=== PATIENT | female | born 1945 | race Caucasian/White ===

== ENCOUNTER → 2016-12-21 | Outpatient (REF) | payer OTHER ==
[2016-12-21 19:38] LABS: ALBUMIN 3.4 GM/DL (3.2-5.2); ALBUMIN/GLOBULIN RATIO 0.89 (1.00-1.93); ALKALINE PHOSPHATASE 150 U/L (45-117); ALT/SGPT 25 U/L (12-78); ANION GAP 3 MEQ/L (8-16); AST/SGOT 15 U/L (15-37); BILIRUBIN,TOTAL 0.4 MG/DL (0.2-1.0); BLOOD UREA NITROGEN 15 MG/DL (7-18); CALCIUM LEVEL 9.2 MG/DL (8.8-10.2); CARBON DIOXIDE LEVEL 36 MEQ/L (21-32); CHLORIDE LEVEL 101 MEQ/L (98-107); CREATININE FOR GFR 0.68 MG/DL (0.55-1.02); GLOMERULAR FILTRATION RATE > 60.0 (>39); GLUCOSE, FASTING 120 MG/DL (83-110); POTASSIUM SERUM 3.7 MEQ/L (3.5-5.1); SODIUM LEVEL 140 MEQ/L (136-145); TOTAL PROTEIN 7.2 GM/DL (6.4-8.2)
[2016-12-21 19:50] LABS: BASO % 0.7 % (0.0-1.0); EOS # 0.2 K/mm3 (0.0-0.50); EOS % 3.5 % (0.0-3.0); LARGE UNSTAINED CELL # 0.1 K/mm3 (0.0-0.4); LARGE UNSTAINED CELL % 1.7 % (0.0-4.0); LYMPH # 2.3 K/mm3 (1.5-4.5); LYMPH % 31.6 % (24.0-44.0); MEAN CORPUSCULAR HEMOGLOBIN 29.7 pg (27.0-33.0); MEAN CORPUSCULAR HGB CONC 33.3 g/dl (32.0-36.5); MEAN CORPUSCULAR VOLUME 89.3 fl (80.0-96.0); MONO # 0.4 K/mm3 (0.0-0.8); MONO % 5.2 % (0.0-5.0); NEUTROPHILS # 4.1 K/mm3 (1.8-7.7); NEUTROPHILS % 57.3 % (36.0-66.0); PLATELET COUNT, AUTOMATED 194 k/mm3 (150-450); WHITE BLOOD COUNT 7.1 K/mm3 (4.0-10.0)
== END ==
LOC: M SFHCADAM 12:02
PROVIDERS: ATTEND Family Medicine
DX: R60.0 Localized edema (principal)

== ENCOUNTER → 2017-01-18 | Outpatient (REF) | payer OTHER ==
[~2017-01-18] MED LIST: ALPR0.25 PO; ATOR40TA75 PO; CELE20TA PO; CHLO25TA PO; K-TA10TA2 PO; MULTTAB25 PO; OMEP40CA2 PO; REST0.05 OU
== END ==
LOC: M SFHCADAM 10:25
PROVIDERS: ATTEND Family Medicine
DX: E78.5 Hyperlipidemia, unspecified (principal); R74.8 Abnormal levels of other serum enzymes; G25.81 Restless legs syndrome; I10 Essential (primary) hypertension; K21.9 Gastro-esophageal reflux disease without esophagitis; Z79.899 Other long term (current) drug therapy

== ENCOUNTER → 2017-01-22 | Outpatient (CLI) | payer OTHER ==
--- NOTE | 2017-01-25 23:21 | SLEEPCENT ---
DATE OF PROCEDURE: 01/22/2017 REFERRING PHYSICIAN: Adele Lancaster Nocturnal polysomnography was performed for evaluation of sleep physiology in light of the patient's history of excessive somnolence, snoring and observed apneas. 9 hours and 17 minutes of data were reviewed. There were 300 minutes of sleep identified. Sleep latency was prolonged at 80 minutes. Rapid eye movement (REM) latency was prolonged at 416 minutes. Sleep architecture showed fragmentation with poor progression. REM sleep was achieved at the end of the study. Overall sleep efficiency is 54.3%. The patient's EKG showed a sinus rhythm with frequent ventricular ectopy. Average heart rate of 74 beats per minute. Rate ranged 55 to 90 beats per minute. EEG showed reasonably normal waveforms for awake and sleep. There were 202 respiratory events identified of 10 seconds in duration or greater for an apnea/hypopnea index of 40.3. The events were primarily obstructive, more frequent in stage REM and not exclusive to body posture. Arousals from respiratory events occurred 2.6 times per hour. Oxygen desaturations were seen into the low 80s. Some limb activity was also noted, particularly mid portion of the study. Limb movement arousal index was 5.2. IMPRESSION: Severe obstructive sleep apnea syndrome (G47.33). Apnea/hypopnea index 40.3. RECOMMENDATION: The patient should be encouraged to return to the sleep disorder center for pressure therapy. In the interim, alcohol and sedative avoidance should be practiced and caution exercised during the operation of motor vehicles.
== END ==
LOC: MERGE 19:47 → M SLEEP 19:47
PROVIDERS: ATTEND Nurse Practitioner Adult Health
DX: G47.33 Obstructive sleep apnea (adult) (pediatric) (principal)

== ENCOUNTER → 2017-03-25 | Outpatient (CLI) | payer OTHER ==
--- NOTE | 2017-03-28 10:32 | SLEEPCENT ---
DATE OF PROCEDURE: 03/25/2017 ORDERED BY: Adele Lancaster Nocturnal polysomnography was performed for the titration of pressure therapy in this patient with obstructive sleep apnea syndrome and apnea-hypopnea index of 40.3. For testing, a ResMed AirFit F20 full face mask of small size was used and 4 cm of water pressure were applied to the circuit and the lights were extinguished. 8 hours and 2 minutes of data were reviewed. There were 366 minutes of sleep identified. Sleep latency was mildly prolonged at 44 minutes. Rapid eye movement (REM) latency was quite prolonged at 408 minutes. Sleep architecture was fair, but progression was poor early in the study with frequent micro arousals. There was 1 REM period at the completion of the test. Overall sleep efficiency was 77.1%. Electrocardiogram (EKG) showed an underlying sinus rhythm with multiple PVCs. No runs of ventricular ectopy were appreciated. Electroencephalogram (EEG) showed reasonably normal waveforms for awake and sleep. Respiratory events were best palliated with CPAP at a pressure of +9. Significant limb activity was seen over the course of the test. Limb movement arousal index was increased some from the diagnostic night at 6.7. Remaining measures of sleep physiology were normal. IMPRESSION: Obstructive sleep apnea syndrome (G47.33). RECOMMENDATION: Nightly use of pressure therapy at 9 cm of water.
== END ==
LOC: M SLEEP 19:31
PROVIDERS: ATTEND Nurse Practitioner Adult Health
DX: G47.33 Obstructive sleep apnea (adult) (pediatric) (principal)

== ENCOUNTER → 2017-04-02 | Outpatient (CLI) | payer OTHER ==
--- NOTE | 2017-04-02 11:19 | REP ---
Thoracic spine five views: There is demineralization. There is mild scoliosis convex right at the lower thoracic spine, possibly positional. Vertebral body heights are normal. There are no compression deformities. There is moderate degenerative disc disease throughout the thoracic spine, not unusual for patient age. There are no lytic, blastic or destructive skeletal changes. The pedicles are unremarkable. Impression: Mild scoliosis. Moderate degenerative disc disease throughout the thoracic spine. Otherwise, negative thoracic spine. Signed by Jorge Leigh MD 04/02/2017 11:10 A
== END ==
LOC: M ADAMS 10:40
PROVIDERS: ATTEND Physician Assistant
DX: M41.24 Other idiopathic scoliosis, thoracic region (principal); M51.34 Other intervertebral disc degeneration, thoracic region
CPT/HCPCS: 72072; G0463

== ENCOUNTER → 2017-06-07 | Outpatient (CLI) | payer OTHER ==
--- NOTE | 2017-06-07 15:14 | REP ---
MR THORACIC SPINE WITHOUT CONTRAST: HISTORY: Right thoracic back pain. A very small central disc protrusion is present at the T11-12 level. There is minimal effacement of the thecal sac without spinal cord compression. The T11 neural foramina are patent. There is no other disc bulge or herniation. The remaining neural foramina are patent. The spinal cord is normal in signal intensity. A hemangioma is present in the T7 vertebral body. Increased signal intensity on T2-weighted images is present in the endplates of several mid and lower thoracic vertebral bodies. This represents degenerative change. There is loss of height of severe mid and lower thoracic intervertebral discs. IMPRESSION: Small disc protrusion at the T11-12 level without spinal cord compression. Signed by Anjel Matt MD 06/07/2017 03:21 P
== END ==
LOC: M RAD 13:10
PROVIDERS: ATTEND Family Medicine
DX: M51.24 Other intervertebral disc displacement, thoracic region (principal)

== ENCOUNTER → 2017-08-17 | Outpatient (REF) | payer OTHER ==
[2017-08-17 17:50] LABS: ALBUMIN 3.4 GM/DL (3.2-5.2); ALBUMIN/GLOBULIN RATIO 0.92 (1.00-1.93); ALKALINE PHOSPHATASE 178 U/L (45-117); ALT/SGPT 28 U/L (12-78); ANION GAP 10 MEQ/L (8-16); AST/SGOT 16 U/L (7-37); BILIRUBIN,TOTAL 0.3 MG/DL (0.2-1.0); BLOOD UREA NITROGEN 15 MG/DL (7-18); CALCIUM LEVEL 9.2 MG/DL (8.8-10.2); CARBON DIOXIDE LEVEL 31 MEQ/L (21-32); CHLORIDE LEVEL 103 MEQ/L (98-107); CREATININE FOR GFR 0.79 MG/DL (0.55-1.30); GLOMERULAR FILTRATION RATE > 60.0 (>39); GLUCOSE, FASTING 130 MG/DL (70-100); POTASSIUM SERUM 3.8 MEQ/L (3.5-5.1); SODIUM LEVEL 144 MEQ/L (136-145); TOTAL PROTEIN 7.1 GM/DL (6.4-8.2)
[2017-08-17 17:59] LABS: BASO % 0.3 % (0.0-1.0); EOS # 0.1 10^3/uL (0.0-0.50); EOS % 1.9 % (0.0-3.0); HEMATOCRIT 41.2 % (36.0-47.0); HEMOGLOBIN 13.3 g/dl (12.0-16.0); IMMATURE GRANULOCYTE % 0.1 % (0-3.0); LYMPH # 2.1 10^3/uL (1.5-4.5); LYMPH % 30.7 % (24.0-44.0); MEAN CORPUSCULAR HGB CONC 32.3 g/dl (32.0-36.5); MEAN CORPUSCULAR VOLUME 86.7 fl (80.0-96.0); MONO # 0.5 10^3/uL (0.0-0.8); MONO % 6.9 % (0.0-5.0); NEUTROPHILS # 4.2 10^3/uL (1.8-7.7); NEUTROPHILS % 60.1 % (36.0-66.0); PLATELET COUNT, AUTOMATED 210 10^3/uL (150-450); RED BLOOD COUNT 4.75 10^6/uL (4.00-5.40); RED CELL DISTRIBUTION WIDTH 14.9 % (11.5-14.5)
[2017-08-17 18:21] LABS: ERYTHROCYTE SEDIMENTATION RATE 36 mm/hr (0-30)
[2017-08-20 14:11] LABS: ANTI DOUBLE STRAND-DNA AB <1 IU/mL (0-9); ANTINUCLEAR ANTIBODIES DIRECT Positive (Negative); RNP ANTIBODIES 1.5 AI (0.0-0.9); SJOGREN'S ANTI SS-A <0.2 AI (0.0-0.9); SJOGREN'S ANTI SS-B <0.2 AI (0.0-0.9); SMITH ANTIBODIES <0.2 AI (0.0-0.9)
== END ==
LOC: M SFHCADAM 15:11
DX: M25.50 Pain in unspecified joint (principal); I10 Essential (primary) hypertension
CPT/HCPCS: 80053

== ENCOUNTER → 2017-11-05 | Outpatient (REF) | payer OTHER ==
[2017-11-05 20:02] LABS: CPK CREATINE PHOSPHOKINASE 85 U/L (26-192)
[2017-11-05 20:13] LABS: ERYTHROCYTE SEDIMENTATION RATE 43 mm/hr (0-30)
== END ==
LOC: M SFHCADAM 14:43
DX: M25.50 Pain in unspecified joint (principal)
CPT/HCPCS: 82550

== ENCOUNTER → 2021-12-24 | Outpatient (REF) | payer OTHER ==
[~2021-12-24] MED LIST changes: -OMEP40CA2 PO; +OMEP40CA4 PO
== END ==
LOC: M LAB REF 18:54
PROVIDERS: ATTEND Student in an Organized Health Care Education/Training Program
DX: R30.0 Dysuria (principal)